=== PATIENT | male | born 1965 | race African-American/Black ===

== ENCOUNTER 2024-11-13 19:47 | Emergency (ER) | payer OTHER ==
[~2024-11-13] VITALS: Ht 175.3 cm; Wt 65.8 kg
[2024-11-13] MEDS ORDERED: KETOROLAC TROMETHAMINE INJ 30 MG/ML VIAL ONE (20:28)
[2024-11-13] MEDS ORDERED: ACETAMINOPHEN ES 500 MG TABLET ONE (20:28)
[2024-11-13] MEDS ORDERED: METHOCARBAMOL (500MG) 500 MG TABLET ONE (20:29)
[2024-11-13] MEDS: KETOROLAC TROMETHAMINE INJ 30 MG/ML VIAL IM ONE (20:43)
[2024-11-13] MEDS: ACETAMINOPHEN ES 500 MG TABLET PO ONE (20:44)
[2024-11-13] MEDS: METHOCARBAMOL (750MG) 750 MG TABLET PO ONE (20:44)
[2024-11-13] MEDS ORDERED: METH-649 PO (22:23)
[2024-11-13] MEDS ORDERED: IBUP-76 PO (22:23)
[2024-11-13] MEDS ORDERED: ACET-2030 PO (22:23)
[2024-11-13 23:01] VITALS: BP 115/85; TEMP 98.3; O2SAT 98
== END 2024-11-13 23:01 | disposition home or self-care (01) ==
LOC: ER 19:51
DX: M54.2 Cervicalgia (principal); M54.50 Low back pain, unspecified; F17.200 Nicotine dependence, unspecified, uncomplicated; J44.9 Chronic obstructive pulmonary disease, unspecified; M51.372 Other intervertebral disc degeneration, lumbosacral region with discogenic back pain and lower extremity pain; Z88.5 Allergy status to narcotic agent; V43.12XA Car passenger injured in collision with other type car in nontraffic accident, initial encounter; Y93.89 Activity, other specified; Y92.415 Exit ramp or entrance ramp of street or highway as the place of occurrence of the external cause; Y99.8 Other external cause status
CPT/HCPCS: 99283; 96372; 72100; J1885